=== PATIENT | female | born 1940 | race Caucasian/White ===

== ENCOUNTER 2017-02-27 02:08 | Inpatient (IN) | payer OTHER, MEDICARE ==
[~2017-02-27] VITALS: Ht 165.1 cm; Wt 71.7 kg
[~2017-02-27 02:08] MED LIST: CITALOPRAM HBR20 MG PO; LEVOTHYROXINE100 MC1 PO; LIPITOR20 M2 PO; METFORMIN HCL500 M2 PO; OMEPRAZOLE20 M2 PO
[2017-02-27] MEDS ORDERED: ASPIRIN EC325 M2 PO (13:49)
[2017-02-27] MEDS ORDERED: COLACE100 M1 PO (13:49)
[2017-02-27] MEDS ORDERED: MIRALAX17 G1 PO (13:49)
[2017-02-27] MEDS ORDERED: DILAUDID2 M1 PO (13:49)
--- NOTE | 2017-02-27 14:05 | Patient Discharge Instructions ---
Discharge Instructions General Discharge Information You were seen/treated for: R hip pain related to osteoarthritis You had these procedures: Right total hip replacement Watch for these problems: Worsening pain despite pain medication use, increased redness, warmth, or swelling, signs of wound infection/drainage, inability to bear weight on surgical leg, persistant nausea/vomiting, fever> 101 Do not soak the wound: Yes No bath, but you may shower: Yes Other wound care: Keep wound clean and dry. No topical medications/ointments of any kind at/near incision. Daily dry dressing changes. Special Instructions: Take aspirin as directed to prevent postoperative blood clot formation. Take aspirin with food to prevent stomach upset. Narcotic pain medication can cause constipation. Take colace and miralax to prevent this. Stop these stool aids if loose stool/diarrhea develops. Contact your doctor if you do not have a bowel movement for several days or are unable to pass gas. Diet Continue normal diet: Yes Recommended Diet: Diabetic Activity Activity Self Limited: Yes Pounds, do NOT lift more than: 10 Activity Limited to: Weight bear as tolerated Acute Coronary Syndrome Inclusion Criteria At DC or during hospital stay patient has or had the following: ACS DIAGNOSIS No Discharge Core Measures Meds if any: Prescribed or Continued at Discharge Meds if any: NOT Prescribed or Continued at Discharge Congestive Heart Failure Inclusion Criteria At DC or during hospital stay patient has or had the following: CHF DIAGNOSIS No Discharge Core Measures Meds if any: Prescribed or Continued at Discharge Meds if any: NOT Prescribed or Continued at Discharge Cerebrovascular accident Inclusion Criteria At DC or during hospital stay patient has or had the following: CVA/TIA Diagnosis No Discharge Core Measures Meds if any: Prescribed or Continued at Discharge Meds if any: NOT Prescribed or Continued at Discharge Venous thromboembolism Inclusion Criteria VTE Diagnosis No VTE Type NONE VTE Confirmed by (Test) NONE Discharge Core Measures - Per Current guidelines, there needs to be overlap - treatment for the first 5 days of Warfarin therapy. - If discharged on Warfarin prior to 5 days of - overlap therapy, the patient will need to be - assessed for post discharge needs including - *Post discharge parental anticoagulation - *Warfarin and/or parental anticoagulation education - *Follow up date to check INR post discharge At least 5 days overlap therapy as Inpatient No Meds if any: Prescribed or Continued at Discharge Note: Overlap Therapy is Warfarin and Anticoagulant Meds if any: NOT Prescribed or Continued at Discharge
--- NOTE | 2017-02-27 14:07 | Admission Core Measures ---
Admission Meds I reviewed the following Meds: Current Medications Sig/Red Start time Last Medication Dose Stop Time Status Admin Acetaminophen 975 MG ONCE 02/27 0000 NR (Tylenol) 02/27 2359 Atorvastatin Calcium 20 MG Q48H 02/28 1000 AC (Lipitor) Cefazolin Sodium 2,000 MG ONCE 02/27 0000 NR (Kefzol-Ancef Inj) 02/27 2359 Citalopram 20 MG DAILY 02/28 1000 AC Hydrobromide (Celexa) Levothyroxine Sodium 0.1 MG DAILY 02/28 1000 AC (Synthroid) Metformin HCl 500 MG DAILY 02/28 1000 AC (Glucophage) Omeprazole 20 MG DAILY PRN 02/27 1045 AC (Prilosec) Oxycodone HCl 10 MG ONCE 02/27 NR (Roxicodone) 02/27 2359 Acute Coronary Syndrome Inclusion Criteria ACS Diagnosis No Inpatient Core Measures LDL Reminder: If No, please order W/I first 24hr of stay Congestive Heart Failure Inclusion Criteria CHF Diagnosis No Cerebrovascular accident Inclusion Criteria CVA/TIA Diagnosis No Inpatient Core Measures Bedside Swallow Eval Reminder: If BSE failed, place ST order Antithrombotic Reminder: Order Antithrombotic Medication by end of day 2 Antithrombotic Reminder: Document Reason Antithrombotic Not ordered by end of day 2 AFIB/Flutter Reminder: If Present, add to problem list AFIB/Flutter Reminder: Order Anticoag Medication for pts with AFIB/Flutter Atherosclerosis Reminder: If Present, add to problem list LDL Reminder: If No, please order W/I first 24hr of stay PT Order Reminder: If No, please order Venous thromboembolism Inpatient Core Measures VTE Risk Factors: Surgery No [facility] VTE prophylaxis d/t No contraindications No VTE Pharm Prophylaxis d/t No contraindications Inclusion Criteria - Per Current guidelines, there needs to be overlap - treatment for the first 5 days of Warfarin therapy. - Parenteral Anticoagulation (IV or SC) needs to be - given along with Warfarin therapy. VTE Diagnosis No VTE Type NONE VTE Confirmed by (Test) NONE Problem List As ranked by this Provider includes Assessment & Plan 1. Unilateral primary osteoarthritis, right hip HOME MEDS Home Med List Aspirin (Ecotrin*) 325 MG TABLET.DR 1 TAB PO BID ANTICOAGULATION Atorvastatin Calcium (Lipitor) 20 MG TABLET 1 TAB PO EVERY OTHER CHOLESTEROL (Reported) Citalopram Hydrobromide (Citalopram HBr) 20 MG TABLET 1 TAB PO DAILY SYNCOPE.. ? ANXIETY (Reported) Docusate Sodium (Colace) 100 MG CAPSULE 1 CAP PO BID STOOL SOFTENER Hydromorphone HCl (Dilaudid) 2 MG TABLET 1-2 TAB PO Q4-6 PRN PRN PAIN Levothyroxine Sodium 100 MCG TABLET 1 TAB PO DAILY HYPOTHYROID (Reported) Metformin HCl (Metformin HCl ER) 500 MG TAB.ER.24 1 TAB PO DAILY DM II ( Reported) Omeprazole 20 MG CAPSULE.DR 1 CAP PO DAILY PRN GERD (Reported) Polyethylene Glycol 3350 (Miralax) 17 GRAM POWD.PACK 1 PAC PO DAILY CONSTIPATION
--- NOTE | 2017-02-27 14:15 | Surgical Discharge Summary ---
Visit Information Visit Dates Admission Date: 02/27/17 Discharge Date: 03/01/17 History of Present Illness Chief Complaint: right hip pain Medical History Isolation History: Standard Surgical History Pertinent Surgical History: non-contributory Review of Systems: see H&P Hospital Course Course Attending Physician: ARMANI CARVALHO MD Primary Care Physician: KIKI MARAVILLA,[facility] Course: 76yoF underwent elective Right total hip replacement by Dr. Carvalho on 02/27/17. Patient tolerated procedure well. Postoperatively, patient was WBAT and OOB with PT. Pain is well controlled with oral pain medications, and neurovascular status remained intact. Patient is stable and cleared for hospital discharge. Allergies: Coded Allergies: No Known Allergies (02/22/17) Disposition Summary Disposition Principal Diagnosis: Right hip unilateral primary osteoarthritis Additional Diagnosis: none Discharge Disposition: home health services Discharge Instructions General Discharge Information Code Status: Full Code Patient's Diet: diabetic Patient's Activity: WBAT Follow-Up Instructions/Appts: 6 weeks from date of surgery with Dr. Carvalho Medications at Discharge Discharge Medications: Continue taking these medications: Citalopram Hydrobromide (Citalopram HBr) 20 MG TABLET 1 Tablet ORAL DAILY Comments: Last Taken: 03/01/17 Time: 1100AM Levothyroxine Sodium (Levothyroxine Sodium) 100 MCG TABLET 1 Tablet ORAL DAILY Comments: Last Taken: 03/01/17 Time: 0800AM Atorvastatin Calcium (Lipitor) 20 MG TABLET 1 Tablet ORAL EVERY OTHER Comments: Last Taken:02/28/17 Time: 1700PM Metformin HCl (Metformin HCl ER) 500 MG TAB.ER.24 1 Tablet ORAL DAILY Comments: Last Taken: 03/01/17 Time: 1100AM Omeprazole (Omeprazole) 20 MG CAPSULE.DR 1 Capsule ORAL DAILY as needed for GERD Comments: NOT GIVEN IN HOSPITAL Start taking the following new medications: Hydromorphone HCl (Dilaudid) 2 MG TABLET 1-2 Tablet ORAL EVERY 4-6 HOURS NEEDED as needed for PAIN Qty = 36 No Refills Comments: Last Taken: 03/01/17 Time: 1100AM Aspirin (Ecotrin*) 325 MG TABLET.DR 1 Tablet ORAL TWICE DAILY Qty = 60 No Refills Comments: Last Taken: 03/01/17 Time: 1100AM Docusate Sodium (Colace) 100 MG CAPSULE 1 Capsule ORAL TWICE DAILY Days = 7 No Refills Instructions: STOP TAKING IF YOU DEVELOP LOOSE STOOL/DIARRHEA Comments: Last Taken: 03/01/17 Time: 1100AM Polyethylene Glycol 3350 (Miralax) 17 GRAM POWD.PACK 1 Packet ORAL DAILY Days = 7 No Refills Instructions: dissolve in water. STOP TAKING IF YOU DEVELOP LOOSE STOOL/DIARRHEA Comments: Last Taken: 03/01/17 Time: 1100AM
--- NOTE | 2017-02-27 15:00 | RADIOLOGY REPORT ---
EXAMINATION: XR HIP, RIGHT CLINICAL INFORMATION: Postop right hip COMPARISON: None TECHNIQUE: Two views of the right hip. FINDINGS: Right total hip arthroplasty noted in the usual position. No periprosthetic fracture or suspicious area of lucency. Air noted in the soft tissues compatible with recent surgery. IMPRESSION: Right total hip arthroplasty without complication by x-ray.
--- NOTE | 2017-02-27 15:59 | PN- Orthopedic ---
Subjective Subjective: POSTOP CHECK no pain, spinal starting to wear off, tolerating water, no n/v, no CP/SOB. still in PACU- awaiting transport to floor. Objective Vital Signs and I&Os Afebrile, VSS. Physical Exam: gen: NAD card: s1s2 rrr pulm: ctab abd: soft nt ext: R hip dressing CDI, nontender, no eccymosis/erythema, feet warm and pink bl , limited motor bl feet (spinal still on board) Assessment/Plan Assessment/Plan A: 76F POD0 sp R THR, stable, with spinal anesthesia still metabolizing. P: prn pain meds home meds OOB with PT, WBAT ASA BID ADA diet Dc planning will dw attending Core Measures/Miscellaneous Venous Thromboembolism VTE Risk Factors: Surgery VTE Contraindications: No Contraindications VTE Diagnosis: No VTE Type: NONE VTE Confirmed by (Test): NONE Beta Kelly Is Beta Kelly a Home Med? No Antibiotics Is Patient on Antibiotics? Yes If Yes: prophylaxis
--- NOTE | 2017-02-27 16:27 | Operative Report ---
Operative/Inv Procedure Report Surgery Date: 02/27/17 Name of Procedure: Right total hip replacement Pre-Operative Diagnosis: Primary right hip DJD Post-Operative Diagnosis: Same Estimated Blood Loss: 400 Surgeon/Multiple Spindle Router Operator: DEVEN MARAVILLA,ARMANI Napoles Anesthesia: block Operative/Procedure Note Note: Description of Procedure: The patient was taken to the operating room and positively identified. After induction of spinal anesthesia and administration of appropriate pre-operative antibiotics, the patient was positioned supine on the operating room table and all bony prominences were well padded. After performing a surgical timeout, the right lower extremity was prepped and draped in the usual sterile fashion. A direct anterior approach was made to the right hip. The incision was carried sharply through superficial soft tissues to the level of the fascia. Meticulous hemostasis was maintained with Bovie electocautery. The fascia over the tensor fascia fiona muscle was opened sharply and the interval between the TFL and the sartorius was entered bluntly taking care to stay lateral to the lateral femoral cutaneous nerve. Retractors were placed around the femoral neck and the pericapsular fat was identified. The ascending branches of the lateral femoral circumflex vessels were identified and carefully coagulated. The pericapsular fat and anterior capsule were then resected. A napkin ring osteotomy was performed and the femoral head was removed without difficulty. Attention was then turned to the acetabulum. After appropriate placement of retractors, the acetabulum was exposed. Soft tissue was cleaned from the acetabular margin and notch. Overhanging osteophytes were removed and the teardrop was exposed. The acetabulum was then sequentially reamed to accept a 54 mm Kate Tritanium hemispherical solid back shell. This was impacted into place in the appropriate position and fitted with a 36 mm Trident X3 zero degree polyethylene insert. Attention was then turned to the femur. After performing the appropriate ligament releases, the proximal femur was exposed. It was then sequentially broached to accept a size 3 Carlisle accolade 2 stem. This was trialed for leg length and stability. The trial component was removed and the final component was impacted into place. The trunnion was carefully cleaned and fit with a 36 mm, -2.5 Biolox delta ceramic femoral head. The hip was reduced and put through a full range of motion and found to be stable. The articular space was then irrigated with sterile saline. The periarticular soft tissues were infilitrated with Marcaine. The fascial layer was closed with interrupted #1 vicryl suture and the skin was re-approximated with interrupted 2 -0 vicryl. The skin was closed with a running 3-0 V-Lock suture. Steri-strips and a sterile dressing were applied. The patient was awakened and taken to the recovery room in satisfactory condition. Saw
[2017-02-27 19:48] VITALS: BP 114/72
[2017-02-27 21:52] VITALS: BP 116/64
[2017-02-28 00:30] VITALS: BP 110/64
[2017-02-28 02:02] VITALS: BP 100/60
[2017-02-28 06:16] VITALS: BP 138/68
[2017-02-28 07:59] LABS: ABSOLUTE BASOPHIL COUNT 0 /CUMM (0.0-0.2); ABSOLUTE EOSINOPHIL COUNT 0 /CUMM (0.0-0.7); ABSOLUTE GRANULOCYTE CT 7.9 /CUMM (1.4-6.5); ABSOLUTE LYMPH COUNT 0.6 /CUMM (1.2-3.4); ABSOLUTE MONOCYTE COUNT 0.6 /CUMM (0.10-0.60); EOSINOPHIL % 0 % (0-5)
[2017-02-28 08:30] LABS: BASOPHIL % 0.1 % (0.0-2.0); HEMATOCRIT 35.4 % (37-47); MEAN CORPUSCULAR HGB 29.4 PG (27.0-31.0); MEAN CORPUSCULAR VOLUME 88.9 FL (81.0-99.0); PLATELET COUNT 140 /CUMM (130-400); RBC DISTRIBUTION WIDTH 14.6 % (11.5-14.5); RED BLOOD CELL CT 3.98 /CUMM (4.20-5.40); WHITE BLOOD CELL COUNT 9.1 /CUMM (4.8-10.8)
[2017-02-28 09:14] LABS: GRANULOCYTE % 86.2 % (42.2-75.2)
--- NOTE | 2017-02-28 09:57 | PN- Orthopedic ---
Subjective Subjective: NO ISSUES OVER NIGHT PER PT. THIS MORNING HAD DIFFUCULTY PUTTING WEIGHT ON RIGHT LEG DUE TO PAIN WHEN WORKING WITH PT. Objective Vital Signs and I&Os Vital Signs Date Time Temp Pulse Resp B/P B/P Pulse O2 O2 Flow FiO2 Mean Ox Delivery Rate 02/28 0616 97.8 68 20 138/68 95 Room Air 02/28 0202 98.6 66 20 100/60 92 Room Air 02/28 0030 98.5 65 20 110/64 94 Room Air 02/27 2152 97.8 72 20 116/64 94 Room Air 02/27 1948 97.2 68 20 114/72 93 Room Air Intake & Output 02/28 1600 02/28 0800 02/28 0000 02/27 1600 02/27 0800 02/27 0000 Intake Total 720 420 Output Total 400 1000 Balance 320 -580 Intake, IV 600 300 Intake, Oral 120 120 Output, Urine 400 1000 Patient 158 lb Weight Weight Reported by Patient Measurement Method ALERT, ORINETED, APPROPRIATE, LOOKS COMFORTABLE WHILE RESTING IN CHAIR. HEART REGULAR LUNGS CLEAR BILAT. ABDOMEN BENIGN RLE WITH R HIP DRESSING ON C/D/I, MILD ECCHYMOSIS.TENDER TO TOUCH ALONG INCISION. APPROPRIATE SENSATION TO THIGH AND DISTALLY NEUROVASCULAR PERFUSION ADEQUATE. Assessment/Plan Assessment/Plan S/P R THR FOR R HIP DJD POD #1 STABLE HEMODYNAMICS WOUND WITHOUT INFECTION, DRESSING CHANGE TOMORROW PAIN ; CONT. PO DILAUDID ON ASA FOR ANTICOAGULATION NEEDS TO WORK WITH PT TO INCREASE MOBILITY. EVALUATED BY PT TODAY, PER VERBAL REPORT SHE IS NOT READY FOR DISCHARGE TODAY HYPONATRIEMIA,LIKELY FROM FLUID SHIFTS, EXPECT IT WILL RESOLVE. WILL RECHECK ELECTROLYTES FOR TOMORROW.WILL D/C IVF. Core Measures/Miscellaneous Venous Thromboembolism VTE Risk Factors: Surgery VTE Contraindications: No Contraindications VTE Diagnosis: No VTE Type: NONE VTE Confirmed by (Test): NONE Beta Kelly Is Beta Kelly a Home Med? No Antibiotics Is Patient on Antibiotics? Yes If Yes: prophylaxis
[2017-02-28 11:01] VITALS: BP 110/50
[2017-02-28 13:57] VITALS: BP 100/50
[2017-02-28 21:55] VITALS: BP 112/62
[2017-03-01 07:23] VITALS: BP 128/64
--- NOTE | 2017-03-01 07:34 | PN- Orthopedic ---
Subjective Subjective: pod#2 s/p rigth prosper no major issues overnight comfortable now sitting at bedside eating breakfast denies cp, sob, no n+v Objective Vital Signs and I&Os Vital Signs Date Time Temp Pulse Resp B/P B/P Pulse O2 O2 Flow FiO2 Mean Ox Delivery Rate / 0723 98.2 73 20 128/64 94 02/28 2155 98.9 76 19 112/62 96 / 1357 97.9 60 18 100/50 94 Room Air 02/28 1101 98.0 62 20 110/50 94 Room Air Intake & Output / 0800 / 0000 02/28 1600 02/28 0800 02/28 0000 02/27 1600 Intake Total 1050 720 420 Output Total 900 950 970 138 4636 Balance -900 -950 750 320 -580 Intake, IV 150 600 300 Intake, Oral 900 120 120 Output, Urine 900 950 282 784 6830 Patient 158 lb Weight Weight Reported by Patient Measurement Method Physical Exam: cv:rrr lungs: clear abd: soft, +bs ext: drsg changed, wound c/d/i no calf tenderness bilat distal cms intact Assessment/Plan Assessment/Plan ortho stable plan cont oob with pt/stairs home d/c later today Core Measures/Miscellaneous Venous Thromboembolism VTE Risk Factors: Surgery VTE Contraindications: No Contraindications VTE Diagnosis: No VTE Type: NONE VTE Confirmed by (Test): NONE Beta Kelly Is Beta Kelly a Home Med? No Antibiotics Is Patient on Antibiotics? Yes If Yes: prophylaxis
== END 2017-03-01 15:06 | disposition home health service (06) | DRG 470 ==
LOC: 2NB 02:08 → SDA 02:08 → ENRESERV 14:14 → 2NB 16:42 → ENPENDDIS 03-01 07:40 → 2NB 03-01 15:06
PROVIDERS: Physician Assistant Surgical; ADMIT Orthopaedic Surgery
PROC: 0SR904A Replacement of Right Hip Joint with Ceramic on Polyethylene Synthetic Substitute, Uncemented, Open Approach (ICD-10-PCS; principal; 2017-02-27)
DX: M16.11 Unilateral primary osteoarthritis, right hip (principal); E87.1 Hypo-osmolality and hyponatremia; E11.9 Type 2 diabetes mellitus without complications; E03.9 Hypothyroidism, unspecified; E78.5 Hyperlipidemia, unspecified; I10 Essential (primary) hypertension; Z79.84 Long term (current) use of oral hypoglycemic drugs; K21.9 Gastro-esophageal reflux disease without esophagitis
CPT/HCPCS: 2NBSP; 36415; 73502-RT; 82436; 88304; 97110-GO; 97116-GO; 97161-GP; 97530-GO; J0131; J0690; J0735; J2270; J2405; J2550; J7042